=== PATIENT | male | born 1960 | race Caucasian/White ===

== ENCOUNTER 2025-04-30 07:21 | Inpatient (IN) | payer MEDICARE ==
[2025-04-30] MEDS ORDERED: Ondansetron 4 MG/2 ML SDV ONE (08:03)
[2025-04-30] MEDS ORDERED: Succinylcholine 200 MG/10 ML MDV ONE (08:03)
[2025-04-30] MEDS ORDERED: Dexamethasone 4 MG/ML SDV ONE (08:03)
[2025-04-30] MEDS ORDERED: fentaNYL 250 MCG/5 ML SDV ONE (08:03)
[2025-04-30] MEDS ORDERED: Propofol 200 MG/20 ML SDV ONE (08:03)
[2025-04-30] MEDS ORDERED: Lactobacillus Rhamnosus GG (Probiotic) Cap PO SCH (09:00)
[2025-04-30] MEDS: metroNIDAZOLE/Normal Saline 500 MG in Premix Bag 1 BAG IV ONE (09:17)
[2025-04-30] MEDS ORDERED: fentaNYL 100 MCG/2 ML SDV ONE (10:14)
[2025-04-30] MEDS ORDERED: ePHEDrine 50 MG/ML SDV ONE ×2 (10:20→10:53)
[2025-04-30] MEDS: Lidocaine 1% with EPINEPHrine 1:100,000 50 ML MDV ONE (10:30)
[2025-04-30] MEDS ORDERED: Phenylephrine 1% 10 MG/ML SDV ONE (10:56)
[2025-04-30] MEDS ORDERED: diphenhydrAMINE 50 MG/ML SDV IVPUSH PRN (11:37)
[2025-04-30] MEDS ORDERED: Benzocaine/Cetylpyridinium/Menthol Lozenge MUCMEM PRN (11:37)
[2025-04-30] MEDS ORDERED: Promethazine 25 MG/ML SDV IM PRN (11:37)
[2025-04-30] MEDS ORDERED: Scopalamine 1mg/3day Transdermal Patch ONE (11:38)
[2025-04-30] MEDS ORDERED: fentaNYL 50 MCG/ML SDV IVPUSH PRN (12:40)
[2025-04-30] MEDS: fentaNYL 50 MCG/ML SDV IVPUSH PRN (12:54)
[2025-04-30] MEDS ORDERED: Ondansetron 4 MG/2 ML SDV IVPUSH PRN (13:13)
[2025-04-30] MEDS: Acetaminophen/oxyCODONE 325-5 MG Tab PO PRN (14:14)
[2025-04-30] MEDS ORDERED: Albuterol 0.083% 2.5 MG/3 ML Neb Soln INH PRN (15:17)
[2025-04-30] MEDS: Formoterol/Mometasone 200-5 MCG 8.8 GM Inhaler IH SCH (20:58)
[2025-05-01 06:29] LABS: PLATELET COUNT,PLT 286.0 K/uL (130-375); RED BLOOD CELL COUNT 3.42 M/uL (4.14-5.76); WHITE BLOOD CELL COUNT,WBC 15.0 K/uL (3.2-11.0)
[2025-05-01 06:51] LABS: BLOOD UREA NITROGEN,BUN 34.0 mg/dL (7-18); CARBON DIOXIDE,CO2 27.0 mmol/L (21-32); CHLORIDE,CL 104.0 mmol/L (100-108); CREATININE 1.3 mg/dL (0.8-1.3); EST CRCL DRUG DOSING (CG) 55.14 mL/min; ESTIMATED GFR 60.0 mL/min (>60); GLUCOSE RANDOM 65.0 mg/dL (74-106); POTASSIUM,K 4.3 mmol/L (3.6-5.2); SODIUM,NA 138.0 mmol/L (140-148)
[2025-05-01] MEDS: VERIFY SCOP PATCH SCH (09:18)
[2025-05-01] MEDS: hydrOXYzine HCL 100 MG/2 ML SDV IM PRN (14:54)
[2025-05-02 05:47] LABS: BASOPHILS ABSOLUTE AUTO 0.07 K/uL (0.00-0.10); BASOPHILS PERCENT AUTO 0.6 % (0.1-1.3); EOSINOPHILS ABSOLUTE AUTO 0.39 K/uL (0.00-0.40); EOSINOPHILS PERCENT AUTO 3.1 % (0.0-5.4); IMMATURE GRAN ABSOLUTE AUTO 0.05 K/uL (0.00-0.23); IMMATURE GRAN PERCENT AUTO 0.4 % (0.0-0.7); LYMPHOCYTES ABSOLUTE AUTO 1.41 K/uL (0.8-3.3); LYMPHOCYTES PERCENT AUTO 11.2 % (11.4-47.7); MONOCYTES ABSOLUTE AUTO 1.78 K/uL (0.20-0.90); MONOCYTES PERCENT AUTO 14.2 % (3.3-12.6); NEUTROPHILS ABSOLUTE AUTO 8.87 K/uL (1.0-7.6); NEUTROPHILS PERCENT AUTO 70.5 % (40.0-78.1); PLATELET COUNT,PLT 265 K/uL (130-375); RED BLOOD CELL COUNT 3.50 M/uL (4.14-5.76); WHITE BLOOD CELL COUNT,WBC 12.6 K/uL (3.2-11.0)
[2025-05-02 06:00] LABS: BLOOD UREA NITROGEN,BUN 43.0 mg/dL (7-18); CARBON DIOXIDE,CO2 28.0 mmol/L (21-32); CHLORIDE,CL 103.0 mmol/L (100-108); CREATININE 1.6 mg/dL (0.8-1.3); EST CRCL DRUG DOSING (CG) 44.65 mL/min; ESTIMATED GFR 47.0 mL/min (>60); GLUCOSE RANDOM 193.0 mg/dL (74-106); POTASSIUM,K 5.1 mmol/L (3.6-5.2); SODIUM,NA 137.0 mmol/L (140-148)
[2025-05-02] MEDS ORDERED: Sodium Chloride 0.9% 10 ML Syringe IV PRN (08:39)
[2025-05-03 05:52] LABS: PLATELET COUNT,PLT 272.0 K/uL (130-375); RED BLOOD CELL COUNT 3.51 M/uL (4.14-5.76); WHITE BLOOD CELL COUNT,WBC 10.7 K/uL (3.2-11.0)
[2025-05-03 06:06] LABS: BLOOD UREA NITROGEN,BUN 51.0 mg/dL (7-18); CARBON DIOXIDE,CO2 28.0 mmol/L (21-32); CHLORIDE,CL 101.0 mmol/L (100-108); CREATININE 1.6 mg/dL (0.8-1.3); EST CRCL DRUG DOSING (CG) 44.65 mL/min; ESTIMATED GFR 47.0 mL/min (>60); GLUCOSE RANDOM 163.0 mg/dL (74-106); POTASSIUM,K 4.6 mmol/L (3.6-5.2); SODIUM,NA 136.0 mmol/L (140-148)
[2025-05-03] MEDS: Sennosides/Docusate Sodium 50-8.6 MG Tab PO PRN (08:10)
[2025-05-06] MEDS: Insulin Lispro 100 Unit/ML 3 ML KwikPen SUBCUT SCH (16:57)
[2025-05-07] MEDS ORDERED: 50% Dextrose in Water 50 ML Syringe IVPUSH PRN (09:03)
[2025-05-07] MEDS: Insulin Lispro 100 Unit/ML 3 ML KwikPen SUBCUT ONE (09:45)
== END 2025-05-07 11:23 | disposition home or self-care (01) | DRG 41 ==
LOC: JP.SDS 07:21 → JP.MS 11:37
PROVIDERS: ADMIT Surgery; ATTEND Surgery
PROC: 3E0333Z Introduction of Anti-inflammatory into Peripheral Vein, Percutaneous Approach (ICD-10-PCS; 2025-04-30)
PROC: 3E033XZ Introduction of Vasopressor into Peripheral Vein, Percutaneous Approach (ICD-10-PCS; 2025-04-30)
PROC: 3E03329 Introduction of Other Anti-infective into Peripheral Vein, Percutaneous Approach (ICD-10-PCS; 2025-04-30)
PROC: 0T9B70Z Drainage of Bladder with Drainage Device, Via Natural or Artificial Opening (ICD-10-PCS; 2025-04-30)
PROC: 0Y6H0Z3 Detachment at Right Lower Leg, Low, Open Approach (ICD-10-PCS; principal; 2025-04-30 08:50)
DX: E10.610 Type 1 diabetes mellitus with diabetic neuropathic arthropathy (principal); I50.42 Chronic combined systolic (congestive) and diastolic (congestive) heart failure; M86.8X6 Other osteomyelitis, lower leg; E10.69 Type 1 diabetes mellitus with other specified complication; F41.9 Anxiety disorder, unspecified; I25.10 Atherosclerotic heart disease of native coronary artery without angina pectoris; J44.9 Chronic obstructive pulmonary disease, unspecified; K21.9 Gastro-esophageal reflux disease without esophagitis; B95.62 Methicillin resistant Staphylococcus aureus infection as the cause of diseases classified elsewhere; F32.A Depression, unspecified; G89.29 Other chronic pain; Z96.698 Presence of other orthopedic joint implants; R33.9 Retention of urine, unspecified; E10.42 Type 1 diabetes mellitus with diabetic polyneuropathy; I73.9 Peripheral vascular disease, unspecified; Z85.51 Personal history of malignant neoplasm of bladder; Z88.8 Allergy status to other drugs, medicaments and biological substances; Z91.048 Other nonmedicinal substance allergy status; Z79.4 Long term (current) use of insulin; Z79.82 Long term (current) use of aspirin; Z79.891 Long term (current) use of opiate analgesic; Z79.1 Long term (current) use of non-steroidal anti-inflammatories (NSAID); Z98.49 Cataract extraction status, unspecified eye; I25.2 Old myocardial infarction; Z86.73 Personal history of transient ischemic attack (TIA), and cerebral infarction without residual deficits; Z95.5 Presence of coronary angioplasty implant and graft; Z98.890 Other specified postprocedural states
CPT/HCPCS: 01482-QZ; 36415; 51702; 51798; 80048; 82947; 85025; 85027; 86850; 86900; 86901; 86920; 86922; 88307; 88311; 94640; 97110-GO; 97110-GP; 97116-GP; 97161-GP; 97166-GO; 97535-GO; 99232; A6260; A9270-GY; J0330; J0665; J0690; J1100; J1836; J2371; J2405; J2704; J3010; J3410; J3490; J7030